=== PATIENT | male | born 1985 | race Caucasian/White ===

== ENCOUNTER 2024-08-23 14:54 | Emergency (ER) | payer BC ==
[2024-08-23 15:01] VITALS: BMI 29.0
[2024-08-23] MEDS ORDERED: ACETAMINOPHEN INJECTION 100 ML ONE (16:52)
[2024-08-23 16:56] LABS: ABSOLUTE IMMATURE GRANULOCYTES 0.03 x10^3/uL (0.0-0.031); BASOPHILS # 0.03 x10^3/uL (0.01-0.08); EOSINOPHIL % 0.8 % (0.8-7.0); EOSINOPHILS # 0.08 x10^3/uL (0.04-0.54); HEMATOCRIT 43.5 % (40.1-51.0); HEMOGLOBIN 14.6 g/dL (13.7-17.5); MCHC 33.6 g/dl (32.3-36.5); MEAN CELL VOLUME 90.6 fl (79.0-92.2); MEAN PLT VOLUME 9.1 fl (9.4-12.4); MONOCYTE # 0.49 x10^3/uL (0.30-0.82); MONOCYTE % 4.6 % (5.3-12.2); PLATELET COUNT 317 x10^3/uL (163-337); RDW 11.9 % (12.0-15.6)
[2024-08-23] MEDS: SODIUM CHLORIDE 0.9% 500 ML INFUS.BAG IV ONE (16:58)
[2024-08-23] MEDS: ACETAMINOPHEN 1000 MG/100 ML BAG IVPB ONE (16:59)
[2024-08-23 17:00] LABS: URINE APPEARANCE CLEAR; URINE BILIRUBIN NEGATIVE (NEGATIVE); URINE COLOR YELLOW; URINE GLUCOSE (UA) NEGATIVE (NEGATIVE); URINE KETONE TRACE (NEGATIVE); URINE LEUK ESTERASE NEGATIVE (NEGATIVE); URINE NITRITE NEGATIVE (NEGATIVE); URINE PROTEIN NEGATIVE (NEGATIVE); URINE UROBILINOGEN 0.2 mg/dL (0.2-1.0)
[2024-08-23 17:17] LABS: POTASSIUM 4.4 mmol/L (3.5-5.1)
[2024-08-23 17:19] LABS: CALCIUM 9.2 mg/dL (8.5-10.1)
[2024-08-23 17:22] LABS: CREATININE 0.8 mg/dL (0.55-1.3)
[2024-08-23 17:24] LABS: BILIRUBIN,TOTAL 0.5 mg/dL (0.2-1); TOT PROT 7.5 g/dl (6.4-8.2)
[2024-08-23 18:06] VITALS: BP 104/56; PULSE 86; RESP 17; TEMP 98.7
[2024-08-23 18:12] LABS: HCV DIAGNOSTIC IN-HOUSE W/RFLX NON-REACTIVE (NONREACTIVE); HIV INTERPRETATION NEGATIVE (NEGATIVE)
== END 2024-08-23 19:23 | disposition home or self-care (01) ==
LOC: JER 14:54
PROC: 3E033NZ Introduction of Analgesics, Hypnotics, Sedatives into Peripheral Vein, Percutaneous Approach (ICD-10-PCS; principal; 2024-08-23)
DX: E10.9 Type 1 diabetes mellitus without complications (principal); R42 Dizziness and giddiness
CPT/HCPCS: 36415; 71046-TC-FY; 80053; 81003; 82010; 82962; 84484; 85025; 86803; 87086; 87389; 93005; 93010; 99285-25; J0131